=== PATIENT | female | born 1980 ===

== ENCOUNTER 2019-01-09 08:11 | Inpatient (IN) ==
[2019-01-09] MEDS ORDERED: ceFAZolin 2,000 MG in PREMIX 1 EACH IV ONE (08:20)
[2019-01-09] MEDS ORDERED: CITRIC ACID/SODIUM CITRATE 30 ML UDCUP PO ONE (08:20)
[2019-01-09] MEDS ORDERED: OXYTOCIN/LR 30 UNIT/1,000 ML BAG IV ONE (08:21)
[2019-01-09] MEDS ORDERED: OXYTOCIN 10 UNIT/ML VIAL IM ONE (08:21)
[2019-01-09] MEDS ORDERED: hydrOXYzine HCL 25 MG/1 ML VIAL IM PRN (08:22)
[2019-01-09] MEDS ORDERED: LACTATED RINGERS 1,000 ML IV ONE (08:22)
[2019-01-09] MEDS ORDERED: PROMETHAZINE 25 MG/1 ML VIAL IM PRN ×2 (08:22→14:30)
[2019-01-09] MEDS ORDERED: diphenhydrAMINE 50 MG/1 ML VIAL IV PRN ×2 (08:22→22:50)
[2019-01-09] MEDS ORDERED: CLINDAMYCIN INJ 900 MG in PREMIX 1 EACH IV ONE (08:23)
[2019-01-09] MEDS ORDERED: LACTATED RINGERS 1,000 ML IV SCH ×2 (08:30→17:00)
[2019-01-09] MEDS ORDERED: FAMOTIDINE 20 MG/2 ML VIAL IV ONE (08:33)
[2019-01-09 08:37] LABS: Basophils % 0.6 % (0.0-0.8); Eosinophils # 0.1 10*3/uL (0.0-0.87); Eosinophils % 1.2 % (0.00-10.9); Hematocrit 31.4 VOL% (35.7-47.0); Hemoglobin 9.8 GM/DL (12.0-16.0); Immature Granulocytes % 1.3 %; Immature Granulocytes Absolute 0.09 #; Lymphocytes # 1.6 10*3/uL (1.4-4.0); Lymphocytes % 23.4 % (21.3-54.2); Mean Corpuscular HGB Conc 31.2 GM/DL (32-36); Mean Corpuscular Volume 86.5 FL (87-102); Mean Platelet Volume 10.2 FL (9.6-12.0); Monocytes % 8.2 % (1.7-12.7); NRBC # 0.03 10*3/uL; Neutrophils % 65.3 % (38.7-73.9); Platelet Count 273 T/CUMM (130-400); Red Blood Count 3.63 MC/CUMM (3.8-5.5); Red Cell Distribution Width 13.9 % (9.3-17.3); White Blood Count 6.7 T/CUMM (4-12)
[2019-01-09 08:47] LABS: INR 0.9; PT Patient Result 9.7 SECS; Partial Thromboplastin Time 25.4 SECS (0-40)
[2019-01-09] MEDS ORDERED: BUPIVACAINE 0.5% 50 ML VIAL ONE (08:47)
[2019-01-09] MEDS ORDERED: ONDANSETRON 4 MG/2 ML VIAL ONE (08:47)
[2019-01-09] MEDS ORDERED: PHENYLEPHRINE 1 MG/10 ML SYRINGE IV ONE (08:47)
[2019-01-09] MEDS ORDERED: BUPIVACAINE SPINAL 0.75% 2 ML AMP SPINAL ONE (08:47)
[2019-01-09] MEDS ORDERED: MORPHINE 10 MG/10 ML VIAL ONE (08:47)
[2019-01-09] MEDS ORDERED: EPINEPHrine 1 MG/ML VIAL ONE (08:47)
[2019-01-09] MEDS ORDERED: DEXAMETHASONE 4 MG/1 ML VIAL ONE (08:47)
[2019-01-09 09:46] LABS: Albumin 2.1 G/DL (3.4-5.0); Bilirubin,Total 0.5 MG/DL (0.2-1.0); Calcium 8.9 MG/DL (8.5-10.1); Osmolality,Calculated 275.5 MOS/KG (273-304); Total Protein 6.8 G/DL (6.4-8.3)
[2019-01-09] MEDS ORDERED: BISACODYL 10 MG SUPP RECTAL PRN (09:58)
[2019-01-09] MEDS ORDERED: ACETAMINOPHEN 325 MG TABLET PO PRN (09:58)
[2019-01-09] MEDS ORDERED: HYDROCORTISONE 2.5% RECTAL CREAM 30 GM TUBE TOP PRN (09:58)
[2019-01-09] MEDS ORDERED: LANOLIN 50% CREAM 0.3 OZ TUBE TOP PRN (09:58)
[2019-01-09] MEDS ORDERED: IBUPROFEN 800 MG TABLET PO PRN (09:58)
[2019-01-09] MEDS ORDERED: oxyCODONE/ACETAMINOPHEN 5-325 MG TABLET PO PRN (09:58)
[2019-01-09] MEDS ORDERED: WITCH HAZEL PADS 100/JAR TOP PRN (09:58)
[2019-01-09] MEDS ORDERED: BENZOCAINE 20%/MENTHOL 0.5% SPRAY 56 GM CAN TOP PRN (09:58)
[2019-01-09] MEDS ORDERED: OXYTOCIN/LR 20 UNIT/1,000 ML BAG IV ONE (09:58)
[2019-01-09 10:02] LABS: Cord Arterial Blood HCO3 27.7 MMOL/L; Cord Venous Blood HCO3 20.9 MMOL/L; Cord Venous Blood PCO2 43.7 MMHG
[2019-01-09] MEDS ORDERED: DIPH/TET/ACEL PERT BOOSTER VACCINE 0.5 ML VIAL IM ONE (10:30)
[2019-01-09] MEDS ORDERED: RHO(D) IMMUNE GLOBULIN 300 MCG SYRINGE IM ONE (10:30)
[2019-01-09] MEDS ORDERED: MEASLES/MUMPS/RUBELLA VACCINE 0.5 ML VIAL SUBCUT ONE (10:30)
[2019-01-09] MEDS ORDERED: METHYLERGONOVINE 0.2 MG/1 ML AMP IM ONE (10:38)
[2019-01-09] MEDS ORDERED: KETOROLAC 30 MG/1 ML VIAL ONE (10:45)
[2019-01-09] MEDS: KETOROLAC 30 MG/1 ML VIAL IV SCH ×2 (10:59→18:33)
[2019-01-09] MEDS: ONDANSETRON 4 MG/2 ML VIAL IV PRN ×2 (13:00→22:57)
[2019-01-09] MEDS: ACETAMINOPHEN 500 MG TABLET PO SCH ×2 (16:56→23:15)
[2019-01-09] MEDS: CLINDAMYCIN INJ 900 MG in PREMIX 1 EACH IV SCH (18:24)
[2019-01-09 18:39] LABS: Basophils % 0.2 % (0.0-0.8); Hematocrit 29.3 VOL% (35.7-47.0); Hemoglobin 9.3 GM/DL (12.0-16.0); Immature Granulocytes % 0.6 %; Immature Granulocytes Absolute 0.07 #; Lymphocytes # 1.5 10*3/uL (1.4-4.0); Mean Corpuscular HGB Conc 31.7 GM/DL (32-36); Mean Corpuscular Volume 84.9 FL (87-102); Mean Platelet Volume 10.7 FL (9.6-12.0); Monocytes % 4.6 % (1.7-12.7); NRBC # 0.03 10*3/uL; Neutrophils % 82.6 % (38.7-73.9); Platelet Count 267 T/CUMM (130-400); Red Blood Count 3.45 MC/CUMM (3.8-5.5); Red Cell Distribution Width 13.8 % (9.3-17.3); White Blood Count 12.3 T/CUMM (4-12)
[2019-01-09] MEDS: DOCUSATE SODIUM 100 MG CAPSULE PO SCH (21:27)
[2019-01-09] MEDS ORDERED: HYDROmorphone 2 MG/1 ML VIAL IV PRN (22:49)
[2019-01-10] MEDS: CLINDAMYCIN INJ 900 MG in PREMIX 1 EACH IV SCH (00:54)
[2019-01-10] MEDS: KETOROLAC 30 MG/1 ML VIAL IV SCH ×2 (02:40→05:16)
[2019-01-10] MEDS: oxyCODONE/ACETAMINOPHEN 5-325 MG TABLET PO PRN ×2 (04:54→17:56)
[2019-01-10] MEDS ORDERED: DEXTROSE 50% 25 GM/50 ML VIAL IV PRN (05:09)
[2019-01-10] MEDS ORDERED: GLUCAGON 1 MG VIAL IM PRN (05:09)
[2019-01-10 05:20] LABS: Basophils % 0.3 % (0.0-0.8); Eosinophils # 0.1 10*3/uL (0.0-0.87); Eosinophils % 0.5 % (0.00-10.9); Hemoglobin 10.2 GM/DL (12.0-16.0); Immature Granulocytes % 0.8 %; Immature Granulocytes Absolute 0.11 #; Lymphocytes # 2.2 10*3/uL (1.4-4.0); Lymphocytes % 16.6 % (21.3-54.2); Mean Corpuscular HGB Conc 31.9 GM/DL (32-36); Mean Corpuscular Volume 84.2 FL (87-102); Mean Platelet Volume 10.7 FL (9.6-12.0); Monocytes % 6.4 % (1.7-12.7); NRBC # 0.02 10*3/uL; Neutrophils % 75.4 % (38.7-73.9); Platelet Count 318 T/CUMM (130-400); White Blood Count 13.1 T/CUMM (4-12)
[2019-01-10] MEDS: ACETAMINOPHEN 500 MG TABLET PO SCH ×2 (06:16→17:55)
[2019-01-10] MEDS: DOCUSATE SODIUM 100 MG CAPSULE PO SCH ×2 (09:00→20:52)
[2019-01-10] MEDS ORDERED: IBUPROFEN 800 MG TABLET ONE (09:07)
[2019-01-10] MEDS ORDERED: METOCLOPRAMIDE 10 MG TABLET ONE (09:07)
[2019-01-10] MEDS: METOCLOPRAMIDE 10 MG TABLET PO SCH ×2 (09:08→18:56)
[2019-01-10] MEDS: IBUPROFEN 800 MG TABLET PO PRN ×2 (09:08→18:52)
[2019-01-11] MEDS: oxyCODONE/ACETAMINOPHEN 5-325 MG TABLET PO PRN ×4 (02:13→19:55)
[2019-01-11] MEDS: IBUPROFEN 800 MG TABLET PO PRN ×3 (08:08→19:55)
[2019-01-11] MEDS: SIMETHICONE CHEW 80 MG TABLET PO PRN (08:57)
[2019-01-11] MEDS: MAGNESIUM HYDROXIDE SUSP 30 ML UDCUP PO PRN ×2 (08:57→19:54)
[2019-01-11] MEDS: DOCUSATE SODIUM 100 MG CAPSULE PO SCH ×3 (08:57→20:50)
[2019-01-12] MEDS: oxyCODONE/ACETAMINOPHEN 5-325 MG TABLET PO PRN ×3 (03:55→22:10)
[2019-01-12] MEDS: IBUPROFEN 800 MG TABLET PO PRN ×3 (09:22→22:11)
[2019-01-12] MEDS: METOCLOPRAMIDE 10 MG TABLET PO PRN ×2 (09:24→16:03)
[2019-01-12] MEDS: SIMETHICONE CHEW 80 MG TABLET PO PRN (09:24)
[2019-01-12] MEDS: DOCUSATE SODIUM 100 MG CAPSULE PO SCH ×2 (09:24→22:10)
[2019-01-12] MEDS: MAGNESIUM HYDROXIDE SUSP 30 ML UDCUP PO PRN ×2 (09:24→22:10)
[2019-01-13 07:51] VITALS: BP 150/71
[2019-01-13] MEDS: DOCUSATE SODIUM 100 MG CAPSULE PO SCH (09:14)
[2019-01-13] MEDS: MAGNESIUM HYDROXIDE SUSP 30 ML UDCUP PO PRN (09:14)
[2019-01-13] MEDS: SIMETHICONE CHEW 80 MG TABLET PO PRN (09:14)
== END 2019-01-13 11:30 | disposition home or self-care (01) | DRG 788 ==
LOC: N.LDOUT 08:11 → N.LD 08:12 → N.OB 12:38
PROVIDERS: ADMIT Obstetrics & Gynecology; ATTEND Obstetrics & Gynecology
PROC: LDCSECT (ICD-10-PCS; 2019-01-09 09:15)